=== PATIENT | female | born 1965 | race African-American/Black ===

== ENCOUNTER 2021-07-16 16:23 | Emergency (ER) | payer BC ==
[~2021-07-16] VITALS: Ht 170.2 cm; Wt 77.0 kg
[~2021-07-16 16:23] MED LIST: ABIL5; DIVA250T4
[2021-07-16 16:43] VITALS: BP 163/102
== END 2021-07-16 19:30 | disposition left against medical advice (07) ==
LOC: ER 16:23
DX: R07.89 Other chest pain (principal)

== ENCOUNTER 2021-12-07 14:43 | Emergency (ER) | payer BC ==
[~2021-12-07] VITALS: Ht 170.2 cm; Wt 78.0 kg
[2021-12-07 14:49] VITALS: BP 173/110
== END 2021-12-07 17:10 | disposition left against medical advice (07) ==
LOC: ER 14:53
DX: Z53.21 Procedure and treatment not carried out due to patient leaving prior to being seen by health care provider (principal)

== ENCOUNTER 2021-12-26 06:10 | Emergency (ER) | payer BC ==
[~2021-12-26] VITALS: Ht 170.2 cm; Wt 85.0 kg
[2021-12-26 06:19] VITALS: BP 140/86
[2021-12-26 07:35] LABS: BASOPHILS % 0.9 % (0.0-2.0); EOSINOPHILS % 1.6 % (0.0-5.0); HEMATOCRIT. 42.6 % (36.0-48.0); HEMOGLOBIN. 14.2 g/dL (12.0-16.0); LYMPHOCYTES % 40.8 % (20.0-50.0); MEAN CORPUSCULAR HEMOGLOBIN 29.9 pg (28.0-32.0); MEAN CORPUSCULAR VOLUME 89.3 fL (81.0-99.0); MEAN PLATELET VOLUME 7.9 fl (7.4-10.4); MONOCYTES % 10.8 % (2.0-8.0); NEUTROPHILS % 45.9 % (40.0-76.0); PLATELET 208 x1000/uL (130-400); RED BLOOD CELL COUNT 4.77 mill/uL (4.2-5.4); RED CELL DISTRIBUTION WIDTH 15.3 % (11.6-14.6)
[2021-12-26 07:42] LABS: CHLORIDE 105 mEq/L (98-107)
[2021-12-26 07:44] LABS: CLARITY URINE CLEAR (CLEAR); COLOR URINE YELLOW (YELLOW); KETONES URINE TRACE (NEGATIVE); LEUKOCYTE ESTERASE URINE NEGATIVE (NEGATIVE); NITRITE URINE NEGATIVE (NEGATIVE); OCCULT BLOOD URINE TRACE (NEGATIVE); PH URINE 5.5 (4.5-8.0); PROTEIN URINE 1+ (NEGATIVE); SPECIFIC GRAVITY URINE 1.025 (1.005-1.030)
[2021-12-26 07:47] LABS: ETHANOL BLOOD < 10 mg/dL
[2021-12-26 07:55] LABS: *AMPHETAMINES SCREEN URINE NEGATIVE (NEGATIVE); *BARBITURATES SCREEN URINE NEGATIVE (NEGATIVE); *BENZODIAZEPINES SCREEN URINE NEGATIVE (NEGATIVE); CANNABINOID URINE SCREEN PRESUMTIVE POSITIVE (NEGATIVE); METHADONE URINE SCREEN NEGATIVE (NEGATIVE); OPIATES URINE SCREEN NEGATIVE (NEGATIVE)
[2021-12-26 07:56] LABS: PHENCYCLIDINE URINE SCREEN NEGATIVE (NEGATIVE)
[2021-12-26 07:58] LABS: *COCAINE SCREEN URINE PRESUMTIVE POSITIVE (NEGATIVE)
== END 2021-12-26 08:58 | disposition home or self-care (01) ==
LOC: ER 06:10
DX: I10 Essential (primary) hypertension (principal); F14.10 Cocaine abuse, uncomplicated; R51.9 Headache, unspecified; F31.9 Bipolar disorder, unspecified; J45.909 Unspecified asthma, uncomplicated; Z88.6 Allergy status to analgesic agent
CPT/HCPCS: 36415; 80053; 80305; 80320; 81003; 83880; 84484; 85025; 93005; 99285; G0480

== ENCOUNTER 2022-10-30 10:21 | Emergency (ER) | payer BC ==
[~2022-10-30] VITALS: Ht 167.6 cm; Wt 77.0 kg
[2022-10-30] MEDS ORDERED: METHYLPREDNISOLONE SOD SUCC 125 MG/2 ML VIAL IV ONE (10:30)
[2022-10-30] MEDS ORDERED: FAMOTIDINE 20MG/2ML VIAL IV ONE (10:30)
[2022-10-30 11:05] LABS: BASOPHILS % 0.2 % (0.0-2.0); EOSINOPHILS % 0.2 % (0.0-5.0); HEMATOCRIT. 42.5 % (36.0-48.0); HEMOGLOBIN. 14.3 g/dL (12.0-16.0); LYMPHOCYTES % 33.9 % (20.0-50.0); MEAN CORPUSCULAR VOLUME 88.9 fL (81.0-99.0); MONOCYTES % 4.7 % (2.0-8.0); PLATELET 282 x1000/uL (130-400); RED BLOOD CELL COUNT 4.78 mill/uL (4.2-5.4)
[2022-10-30 11:14] LABS: CHLORIDE 104 mEq/L (98-107)
[2022-10-30] MEDS ORDERED: P50 PO (12:18)
[2022-10-30] MEDS ORDERED: DIPH25CA83 PO (12:18)
[2022-10-30 12:30] VITALS: BP 182/79
[2022-10-30] MEDS ORDERED: EPIN0.3P3 IM (12:51)
== END 2022-10-30 13:11 | disposition home or self-care (01) ==
LOC: ER 10:21
DX: T78.3XXA Angioneurotic edema, initial encounter (principal); I10 Essential (primary) hypertension; J45.909 Unspecified asthma, uncomplicated; F31.9 Bipolar disorder, unspecified; F14.10 Cocaine abuse, uncomplicated; Z88.6 Allergy status to analgesic agent
CPT/HCPCS: 36415; 80053; 85025; 96374; 96375; 99284; J2930; J3490

== ENCOUNTER 2023-05-02 04:54 | Emergency (ER) | payer BC, MEDICAID ==
[~2023-05-02] VITALS: Ht 170.2 cm; Wt 84.1 kg
[~2023-05-02 04:54] MED LIST changes: +DIPH25CA83 PO; +EPIN0.3P3 IM; +P50 PO
[2023-05-02 04:57] VITALS: BP 174/101; RESP 14; TEMP 98.7; O2SAT 98
[2023-05-02 04:59] VITALS: PULSE 88
[2023-05-02 05:36] LABS: CLARITY URINE TURBID (CLEAR); COLOR URINE YELLOW (YELLOW); KETONES URINE NEGATIVE (NEGATIVE); LEUKOCYTE ESTERASE URINE 3+ (NEGATIVE); NITRITE URINE NEGATIVE (NEGATIVE); OCCULT BLOOD URINE 3+ (NEGATIVE); PH URINE 7.5 (4.5-8.0); PROTEIN URINE 2+ (NEGATIVE); SPECIFIC GRAVITY URINE 1.018 (1.005-1.030)
[2023-05-02 05:37] LABS: BASOPHILS % 0.8 % (0.0-2.0); EOSINOPHILS % 1.7 % (0.0-5.0); HEMATOCRIT. 38.4 % (36.0-48.0); HEMOGLOBIN. 12.8 g/dL (12.0-16.0); LYMPHOCYTES % 38.8 % (20.0-50.0); MEAN CORPUSCULAR HEMOGLOBIN 28.9 pg (28.0-32.0); MEAN CORPUSCULAR VOLUME 87.2 fL (81.0-99.0); MEAN PLATELET VOLUME 7.7 fl (7.4-10.4); MONOCYTES % 9.1 % (2.0-8.0); NEUTROPHILS % 49.6 % (40.0-76.0); PLATELET 206 x1000/uL (130-400); RED BLOOD CELL COUNT 4.41 mill/uL (4.2-5.4); RED CELL DISTRIBUTION WIDTH 15.5 % (11.6-14.6)
[2023-05-02 05:53] LABS: CHLORIDE 111 mEq/L (98-107)
[2023-05-02 06:54] LABS: UCG SCREEN NEGATIVE
[2023-05-02 10:21] LABS: HCG SCREEN NEGATIVE
== END 2023-05-02 09:35 | disposition left against medical advice (07) ==
LOC: ER 04:54
DX: Z53.21 Procedure and treatment not carried out due to patient leaving prior to being seen by health care provider (principal)
CPT/HCPCS: 36415; 80053; 81003; 81025; 84703; 85025; 87186; 99281

== ENCOUNTER 2024-01-21 10:44 | Emergency (ER) | payer MEDICAID ==
[~2024-01-21] VITALS: Ht 170.2 cm; Wt 77.0 kg
[~2024-01-21 10:44] MED LIST changes: +ABIL5 PO; +AMLO10TA80 PO; +DIVA-73 PO; +LABE200T9 PO; -P50 PO
[2024-01-21 10:49] VITALS: O2SAT 100
[2024-01-21 12:10] LABS: EOSINOPHILS % 1.5 % (0.0-5.0); HEMATOCRIT. 45.1 % (36.0-48.0); HEMOGLOBIN. 15.1 g/dL (12.0-16.0); LYMPHOCYTES % 47.2 % (20.0-50.0); MEAN CORPUSCULAR HEMOGLOBIN 30.1 pg (28.0-32.0); MEAN CORPUSCULAR HGB CONC 33.6 g/dL (31.0-37.0); MEAN CORPUSCULAR VOLUME 89.8 fL (81.0-99.0); MEAN PLATELET VOLUME 7.4 fl (7.4-10.4); MONOCYTES % 8.4 % (2.0-8.0); NEUTROPHILS % 41.9 % (40.0-76.0); PLATELET 258 x1000/uL (130-400); RED BLOOD CELL COUNT 5.03 mill/uL (4.2-5.4); RED CELL DISTRIBUTION WIDTH 15.2 % (11.6-14.6); WHITE BLOOD COUNT 3.5 x1000/uL (4.5-11.0)
[2024-01-21 12:38] LABS: ALANINE AMINOTRANSFERASE 8 IU/L (10-49); ALBUMIN 4.5 g/dL (3.2-4.8); ASPARTATE AMINOTRANSFERASE 18 IU/L (<34); BILIRUBIN TOTAL 0.3 mg/dL (0.1-1.0); CALCIUM 9.5 mg/dL (8.7-10.4); CARBON DIOXIDE 27 mEq/L (21-32); CHLORIDE 109 mEq/L (98-107); CREATININE 1.1 mg/dL (0.6-1.0); GLUCOSE 94 mg/dL (70-105); POTASSIUM 4.1 mEq/L (3.5-5.1); PROTEIN TOTAL 8.2 g/dL (6.0-8.3); SODIUM 138 mEq/L (136-145); UREA NITROGEN BLOOD 14 mg/dL (9-23)
[2024-01-21] MEDS: ACETAMINOPHEN 325MG TABLET PO STA (12:54)
[2024-01-21] MEDS: GABAPENTIN 300MG CAPSULE PO ONE (13:00)
[2024-01-21] MEDS ORDERED: GABA-532 PO (14:54)
[2024-01-21] MEDS ORDERED: NAPR-681 PO (14:54)
[2024-01-21 15:30] VITALS: BP 144/87; PULSE 78; RESP 16; TEMP 98.5
== END 2024-01-21 15:32 | disposition home or self-care (01) ==
LOC: ER 10:44
DX: M43.16 Spondylolisthesis, lumbar region (principal); I10 Essential (primary) hypertension; J45.909 Unspecified asthma, uncomplicated; Z88.6 Allergy status to analgesic agent; Z79.899 Other long term (current) drug therapy
CPT/HCPCS: 36415; 72100; 80053; 85025; 99284

== ENCOUNTER 2024-05-10 01:22 | Emergency (ER) | payer MEDICAID ==
[~2024-05-10] VITALS: Ht 170.2 cm; Wt 81.0 kg
[~2024-05-10 01:22] MED LIST changes: +GABA-532 PO; +NAPR-681 PO
[2024-05-10 01:39] VITALS: BP 159/105; PULSE 76; RESP 20; TEMP 98.3; O2SAT 100
== END 2024-05-10 04:15 | disposition left against medical advice (07) ==
LOC: ER 01:31
DX: R07.89 Other chest pain (principal); Z53.21 Procedure and treatment not carried out due to patient leaving prior to being seen by health care provider
CPT/HCPCS: 71100